=== PATIENT | male | born 1965 ===

== ENCOUNTER 2025-01-15 06:00 | Day surgery (SDC) | payer OTHER ==
[2025-01-08 07:25] LABS: URINE APPEARANCE Clear; URINE BILIRRUBIN Negative (NEGATIVE); URINE BLOOD Negative; URINE COLOR Yellow; URINE GLUCOSE Negative (NEGATIVE); URINE KETONE Negative (NEGATIVE); URINE LEUKOCYTE Negative; URINE NITRATE Negative; URINE PROTEIN Negative (NEGATIVE); URINE UROBILINOGEN 0.2 E.U./dl
[2025-01-08 07:25] LABS: BASO % 0.8 % (0.1-1.2); EOS # 0.10 (0.04-0.54); EOS % 2.5 % (0.7-7.0); LYMPH # 1.05 (1.18-3.74); LYMPH % 26.4 % (19.3-53.1); MEAN PLATELET VOLUME 10.10 fl (9.4-12.4); MONO # 0.44 (0.24-0.82); MONO % 11.1 % (4.7-12.5); NEUT # 2.35 (1.56-6.13); NEUT % 58.9 % (34.0-71.1); RED CELL DISTRIBUTION WIDTH 12.5 % (11.6-14.4)
[2025-01-08 07:29] LABS: URINE BACTERIA 9.5 uL (0.0-1933); URINE RBC 2.9 uL (0.0-20.8)
[2025-01-08 07:42] LABS: URINE CAST 0.00 uL (0.0-1.40); URINE EPITHELIAL CELLS 1.0 uL (0.0-38.8); URINE WBC 0.6 uL (0.0-23.2)
[2025-01-08 07:46] LABS: INR 0.98
[2025-01-08 08:02] LABS: ALT/SGPT 76.0 U/L (12-78); AST/SGOT 48.0 U/L (15-37); BILIRUBIN TOTAL 0.64 mg/dL (0.3-1.2); BUN CREA RATIO 16.0 (7.0-25.0); CREATININE SERUM 0.82 mg/dL (0.70-1.30); GFR 96.84; GLOBULINA 3.7 G/DL (2.4-3.5); GLUCOSE FASTING 120.0 mg/dL (65-100); OSMOLALITY SERUM 284.0 MOSM/KG (275-295)
[2025-01-08 08:59] VITALS: BP 126/84
[~2025-01-15] VITALS: Ht 180.3 cm; Wt 127.0 kg
[~2025-01-15 06:00] MED LIST: HYDRODIURIL12.5 MG PO; LIPITOR40 M1 PO; METFORMIN HCL500 M3 PO; NORVASC10 MG; ZESTRIL40 M1 PO
[2025-01-15] MEDS ORDERED: CEFAZOLIN SODIUM 1,000 MG VIAL ONE (07:07)
[2025-01-15] MEDS ORDERED: SUGAMMADEX SODIUM 200 MG/2 ML VIAL IV ONE (09:25)
== END 2025-01-15 12:35 | disposition home or self-care (01) ==
LOC: CIR.AMB 06:00
PROVIDERS: ATTEND Surgery
DX: K43.6 Other and unspecified ventral hernia with obstruction, without gangrene (principal)